=== PATIENT | male | born 1975 | race Caucasian/White ===

== ENCOUNTER 2025-03-08 18:59 | Emergency (ER) | payer OTHER, BC, SELFPAY ==
[2025-03-08 19:03] VITALS: BP 148/89; PULSE 85; TEMP 36.8; O2SAT 98; BMI 47.0
--- NOTE | 2025-03-08 19:20 | ED_ITS ---
HPI HPI - Back Pain/Injury General Chief Complaint: Back Pain/Injury Stated Complaint: BACK INJURY-WORK YESTERDAY Time Seen by Provider: 03/08/25 19:00 Source: patient Mode of arrival: walk-in Limitations: no limitations History of Present Illness HPI Narrative: Patient is a 49-year-old male who presents to the emergency department for evaluation of an injury that occurred to the low back at work yesterday. He states he was helping at work with equipment that swings oejq-zgo-psihs and he twisted his low back. He denies any falls or direct injury to the low back. He reports diffuse pain across the lower lumbar spine and paraspinal muscles. He reports some pain and tingling to the legs bilaterally. No urinary symptoms. He is able to ambulate slowly. He does not take any anticoagulation, only baby aspirin daily. Related Data Home Medications ?Medication ?Instructions ?Recorded ?Confirmed bupropion HCl 150 mg 24 hr tablet, mg PO 03/08/25 extended release fluoxetine 10 mg capsule mg 03/08/25 lisinopril 20 mg tablet mg 03/08/25 metoprolol succinate 100 mg mg PO 03/08/25 tablet,extended release 24 hr Previous Rx's ?Medication ?Instructions ?Recorded hydrocodone 5 mg-acetaminophen 325 1 tab PO Q6H PRN pain 3 days #12 03/08/25 mg tablet tabs methocarbamol 750 mg tablet 750 mg PO TID PRN pain #20 tabs 03/08/25 prednisone 20 mg tablet See Rx Instructions .Route 03/08/25 .COMPLEX #12 tabs Allergies Allergy/AdvReac Type Severity Reaction Status Date / Time ibuprofen (From Advil) Allergy unknown Verified 03/08/25 19:08 Opioid HPI Opioid Management Most Recent Opioid Data: Last ED Pain Assessment 03/08/25 20:15 Review of Systems ROS Constitutional Denies: fever or chills Ears, nose, mouth, and throat Denies: throat pain or nasal congestion Cardiovascular Denies: chest pain Respiratory Denies: shortness of breath or cough Gastrointestinal Denies: abdominal pain, nausea or vomiting Genitourinary Denies: painful urination or difficulty urinating Musculoskeletal Reports: back pain and extremity pain; Denies: neck pain Integumentary/Breast Denies: rash Neurological Reports: numbness in extremities; Denies: weakness in extremities Hematologic/Lymphatic Denies: easy bruising or easy bleeding PFSH PFSH Social History Little interest or pleasure in doing things: not at all Feeling down, depressed, or hopeless: not at all Exam Narrative Exam Narrative: Gen.: Awake, alert, in no distress Head: Normocephalic, atraumatic ENT: Moist mucous membranes Respiratory: No respiratory distress Back: Diffuse tenderness of the lumbar spine and paraspinal muscles of the low back. No bony point tenderness or obvious deformity. No step-off. Exam is slightly limited by body habitus. Extremities: Moves extremities equally, no injuries noted; normal dorsiflexion and plantarflexion of the lower extremities, no decrease in sensation to the medial thighs. Normal hip flexion bilaterally Psych: Normal mood and affect Neuro: No focal neuro deficit Skin: Warm, dry, intact Constitutional Vital Signs, click to edit/add: Last Vital Signs Temp 98.3 F 03/08/25 19:03 Pulse 85 03/08/25 19:03 Resp 24 H 03/08/25 19:03 BP 148/89 H 03/08/25 19:03 Pulse Ox 98 03/08/25 19:03 O2 Del Method Room Air 03/08/25 19:03 Course Vital Signs Vital signs: Vital Signs Temperature 98.3 F 03/08/25 19:03 Pulse Rate 85 03/08/25 19:03 Respiratory Rate 24 H 03/08/25 19:03 Blood Pressure 148/89 H 03/08/25 19:03 Pulse Oximetry 98 03/08/25 19:03 Oxygen Delivery Method Room Air 03/08/25 19:03 Temperature 98.3 F 03/08/25 19:03 Pulse Rate 85 03/08/25 19:03 Respiratory Rate 24 H 03/08/25 19:03 Blood Pressure 148/89 H 03/08/25 19:03 Pulse Oximetry 98 03/08/25 19:03 Oxygen Delivery Method Room Air 03/08/25 19:03 MDM - Back Pain/Injury MDM Narrative Medical decision making narrative: CT of the lumbar spine shows spondylosis with no acute changes. Patient medicated for pain. He is neurovascularly intact with no focal neuro deficits at discharge. Rest, ice, gentle stretching. Follow up with occupational health for reevaluation and work clearance. Return to the ED if symptoms change or worsen. SUPERVISED APC VISIT, PHYSICIAN ATTESTATION: Based on the medical record the care appears appropriate. ? Medical Records Attestation: I reviewed the patient's medical records. Imaging Data CT lumbar spine: Attestation: I have reviewed the pertinent imaging results. Discharge Plan Discharge Chief Complaint: Back Pain/Injury Clinical Impression: Low back pain, Lumbosacral strain, Acute lumbar radiculopathy Patient Disposition: Home, Self-Care Time of Disposition Decision: 20:49 Condition: Good Prescriptions / Home Meds: New hydrocodone-acetaminophen 5-325 mg tablet 1 tab PO Q6H PRN (Reason: pain) 3 Days Qty: 12 0RF Rx Instructions: DX: M54.5 prednisone 20 mg tablet See Rx Instructions .ROUTE .COMPLEX Qty: 12 0RF Rx Instructions: 3 tabs daily for 2 days, then 2 tabs daily for 2 days, then 1 tab daily for 2 days methocarbamol 750 mg tablet 750 mg PO TID PRN (Reason: pain) Qty: 20 0RF No Action lisinopril 20 mg tablet metoprolol succinate 100 mg tablet extended release 24 hr PO fluoxetine 10 mg capsule bupropion HCl 150 mg tablet extended release 24 hr PO Print Language: Luxembourger Instructions: Acute Low Back Pain (ED) Referrals: [facility] [Outside] - As soon as possible Discharge Date/Time: 03/08/25 21:05
[2025-03-08] MEDS: OXYCODONE HCL/ACETAMINOPHEN 5MG/325MG 1 TAB PO (19:26)
[2025-03-08] MEDS: ORPHENADRINE 60 MG/2 ML VIAL IM (19:26)
[2025-03-08] MEDS: METHYLPREDNISOLONE SOD SUCC PF 125 MG/2 ML VIAL IM (19:26)
== END 2025-03-08 21:05 | disposition home or self-care (01) ==
PROVIDERS: Emergency Provider Internal Medicine; PCP Nurse Practitioner
DX: S39.012A Strain of muscle, fascia and tendon of lower back, initial encounter (principal); X50.3XXA Overexertion from repetitive movements, initial encounter; M47.26 Other spondylosis with radiculopathy, lumbar region; M54.50 Low back pain, unspecified
CPT/HCPCS: 72131; 96372; 99285; J2360; J2919

== ENCOUNTER 2025-11-18 21:25 | Emergency (ER) | payer BC, SELFPAY ==
[2025-11-18 21:52] VITALS: BP 197/108; PULSE 108; TEMP 37.3; O2SAT 95; BMI 47.9
[2025-11-18 22:45] VITALS: O2SAT 95
--- NOTE | 2025-11-18 22:55 | ED_ITS ---
HPI - Extremity Problem General Chief complaint: Extremity Problem, Nontraumatic Stated complaint: LEGS SWOLLEN, HURTS TO WALK Time Seen by Provider: 11/18/25 22:27 Source: patient Mode of arrival: walk-in Limitations: no limitations History of Present Illness HPI Narrative: This 50-year-old male who is morbidly obese and has a history of hypertension and peripheral edema presents for evaluation of elevated blood pressure and lower extremity swelling. The patient states he has been off of his blood pressure medications for the past month because his doctor moved out of town. He denies any chest pain or shortness of breath. He has chronic lower extremity skin changes and plus pitting edema of the lower extremities. He denies any chest pain or shortness of breath. He denies that he smokes. He admits that he drinks alcohol. He has no nausea or vomiting or diarrhea. Related Data Home Medications ?Medication ?Instructions ?Recorded ?Confirmed bupropion HCl 150 mg 24 hr tablet, mg PO 03/08/25 extended release fluoxetine 10 mg capsule mg 03/08/25 lisinopril 20 mg tablet mg 03/08/25 metoprolol succinate 100 mg mg PO 03/08/25 tablet,extended release 24 hr Previous Rx's ?Medication ?Instructions ?Recorded hydrocodone 5 mg-acetaminophen 325 1 tab PO Q6H PRN pa in 3 days #12 03/08/25 mg tablet tabs methocarbamol 750 mg tablet 750 mg PO TID PRN pain #20 tabs 03/08/25 prednisone 20 mg tablet See Rx Instructions .Route 0 03/08/25 .COMPLEX #12 tabs Allergies Allergy/AdvReac Type Severity Reaction Status Date / Time ibuprofen (From Advil) Allergy unknown Verified 11/18/25 21:51 Review of Systems ROS Status of ROS 10 or more systems reviewed and unremark able except as noted in history and below PFSH PFSH Social History Little interest or pleasure in doing things: not at all Feeling down, depressed, or hopeless: not at all Exam Narrative Exam Narrative: Vital signs and Nursing Notes reviewed: Patient is afebrile, tachycardic with elevated blood pressure, he is not hypoxic with pulse ox of 95% on room air General: Awake, alert, oriented, obese adult male, somewhat tremulous otherwise no acute distress, lying comfortably on the stretcher HEENT: Normocephalic atraumatic, mucous membranes are moist and pink, eyes are clear, conjunctiva are injected Neck: Supple, no jvd Chest: Lungs are clear to auscultation with good air entry, there is no wheezing rhonchi or rales appreciated no accessory muscle use, patient is speaking in complete sentences-no chest wall tenderness to palpation CVS: Regular rate and rhythm S1-S2, no murmurs rubs or gallops, pulses are brisk and equal bilaterally ABD: Obese, soft, nondistended, nontender, no rebound guarding or rigidity, bowel sounds are normal Extremities: Moving all extremities, chronic lower extremity skin changes with hypertrophic changes in the posterior calves bilaterally, 2+ pitting edema, dorsalis pedis pulses are brisk and equal. Toenails are hypertrophic. Skin: Flushed, otherwise normal in appearance Neuro: No focal deficits Constitutional Vital Signs, click to edit/add: Last Vital Signs Temp 99.2 F 11/18/25 21:52 Pulse 108 H 11/18/25 21:52 Resp 19 11/18/25 21:52 BP 193/103 H 11/18/25 23:06 Pulse Ox 95 11/18/25 22:45 O2 Del Method Room Air 11/18/25 22:45 Course Vital Signs Vital signs: Vital Signs Temperature 99.2 F 11/18/25 21:52 Pulse Rate 108 H 11/18/25 21:52 Respiratory Rate 19 11/18/25 21:52 Blood Pressure 197/108 H 11/18/25 21:52 Pulse Oximetry 95 11/18/25 21:52 Oxygen Delivery Method Room Air 11/18/25 21:52 Temperature 99.2 F 11/18/25 21:52 Pulse Rate 108 H 11/18/25 21:52 Respiratory Rate 19 11/18/25 21:52 Blood Pressure 193/103 H 11/18/25 23:06 Pulse Oximetry 95 11/18/25 22:45 Oxygen Delivery Method Room Air 11/18/25 22:45 MDM - Extremity (Nontraumatic) MDM Narrative Medical decision making narrative: This 50-year-old male with a history of hypertension and lower extremity edema presents for evaluation of lower extremity swelling and pain. He has chronic lower extremity skin changes and 2+ pitting edema. He has been out of his lisinopril and metoprolol for at least 1 month. He states that his family physician moved away. He is not having any chest pain or shortness of breath. He is somewhat flushed and tremulous. He states he is tremulous because he is hungry. He refused an EKG and blood work. He allowed us to do a 1 view chest x-ray which does not show any acute findings. He was medicated emergency department with lisinopril 20 mg and metoprolol. He will be discharged home with prescription for lisinopril, metoprolol and Lasix to use. He will be referred to outpatient family medicine. Discharge Plan Discharge Chief Complaint: Extremity Problem, Nontraumatic Clinical Impression: Lower extremity edema, Hypertension, uncontrolled Patient Disposition: Home, Self-Care Time of Disposition Decision: 23:35 Condition: Fair Prescriptions / Home Meds: No Action lisinopril 20 mg tablet metoprolol succinate 100 mg tablet extended release 24 hr PO fluoxetine 10 mg capsule bupropion HCl 150 mg tablet extended release 24 hr PO hydrocodone-acetaminophen 5-325 mg tablet 1 tab PO Q6H PRN (Reason: pain) 3 Days Qty: 12 0RF Rx Instructions: DX: M54.5 prednisone 20 mg tablet See Rx Instructions .ROUTE .COMPLEX Qty: 12 0RF Rx Instructions: 3 tabs daily for 2 days, then 2 tabs daily for 2 days, then 1 tab daily for 2 days methocarbamol 750 mg tablet 750 mg PO TID PRN (Reason: pain) Qty: 20 0RF Print Language: Haitian Instructions: Chronic Hypertension (ED), Leg Edema (ED), Edema (ED) Referrals: JENNYFER MCNALLY [Primary Care Provider, Unknown] - 1 week
--- NOTE | 2025-11-18 22:57 | XR_ITS ---
[address] [address] Patient Name: DELANO SOUTH MRN: [id number] date: 1975 Sex: M Assigned Patient Location: ER Current Patient Location: Accession/Order Number: [id number] Exam Date: 11/18/2025 22:59 Report Date: 11/18/2025 23:44 At the request of: FRANKI NAVA MD Procedure: XR chest 1V XR chest 1V 11/18/2025 11:17 PM SIGNS AND SYMPTOMS: ^LE swelling PROTOCOL: Frontal radiograph of the chest COMPARISON: 04/09/2023 FINDINGS: The trachea is midline. The heart and mediastinal structures are within normal limits. The lung parenchyma is clear. The bony thorax is intact. XR/XR chest 1V IMPRESSION: No acute cardiopulmonary pathology. Impression dictated by: Braulio Keith M.D. 11/18/2025 11:44 PM Dictation Location: [place] [address] Electronically authenticated by: [id number] Y Date: 11/18/2025 23:44
[2025-11-18 23:06] VITALS: BP 193/103
[2025-11-18] MEDS: METOPROLOL TARTRATE 50 MG TABLET PO (23:06)
[2025-11-18] MEDS: LISINOPRIL 20 MG TABLET PO (23:06)
--- OUTSIDE RECORDS SUMMARY | 2025-11-18 23:27 | XMS_ITS | Clinical Summary ---
Author Organization [facility] Address [address] [place] [address] Care Team Providers Care Block Paver Name Role Phone Unavailable Primary Care Provider Unavailabl e Social History Tobacco UseTypesPacks/DayYears UsedDateSmoking Tobacco: Never AssessedUT Safety & EnvironmentAnswerDate RecordedFear of Current or Ex-PartnerNot on file 01/23/2024Emotionally AbusedNot on file01/23/2024hysically AbusedNot on file 01/23/2024Sexually AbusedNot on file4Physically or Sexually AbusedNot on file01/23/2024Sex and Gender InformationValueDate RecordedSex Assigned at BirthNot on fileLegal TqpNrxw5105/31/2022 12:14 AM EDTGender IdentityNot on file Sexual OrientationNot on file Plan of Treatment Health MaintenanceDue DateLast DoneCommentsCT Eiootcbxxqdg1973Colonoscopy 1973Colorectal Cancer Wzojmlamb1973FIT-DNA1973FIT1973 FOBT1975 7312Qhniymalczaif1973Depression Ixjmsffsk55/28/1985Hepatitis B Vaccines (1 of 3 - 19+ 3-dose series)1992Adult Azvesrn9204/28/1995Zoster Vaccines (1 of 2)2023Influenza Vaccine (#1)2025HIB VaccinesAged Out No longer eligible based on patient's age to complete this topicHPV VaccinesAged OutNo longer eligible based on patient's age to complete this topicIPV Vaccines Aged OutNo longer eligible based on patient's age to complete this topic Meningococcal B VaccineAged OutNo longer eligible based on patient's age to complete this topicMeningococcal VaccineAged OutNo longer eligible based on patient's age to complete this topicPneumococcal Vaccine: Pediatrics (0 to 5 Years) and At-Risk Patients (6 to 64 Years)Aged OutNo longer eligible based on patient's age to complete this topicRotavirus VaccinesAged OutNo longer eligible based on patient's age to complete this topic Insurance MemberSubscriberPlan / Payer (Effective 2022-Present)Name:Sukhjinder Ayala Relation to Subscriber:SelfName:Sukhjinder Ayala Payer ID:[id number] (NAIC) Type:Not on file Address: [address] [place] [id number]
--- OUTSIDE RECORDS SUMMARY | 2025-11-18 23:27 | XMS_ITS | Clinical Summary ---
Author Organization [facility] Address [id number] [address] [place] [address] Care Team Providers Care Computer Assembler Name Role Phone Xiomara Reed APRN-CHIP FRIER Primary Care Provid er Allergies Active AllergyReactionsCriticalityNoted DateCommentsNaproxen SodiumFlushing 12/25/2018 Medications MedicationSigDispense QuantityRefillsLast FilledStart DateEnd DateStatus ibuprofen (ADVIL,MOTRIN) 800 mg tablet Indications:Osteoarthritis of AC (acromioclavicular) joints, bilateralTAKE ONE TABLET BY MOUTH EVERY 8 HOURS NEEDED FOR PAIN 30 tablet 04/07/2018Active aspirin 81 mg Take 1 tablet (81 mg total) by mouth in the morning.Active hydroCHLOROthiazide (HYDRODIURIL) 12.5 mg tablet Indications:Localized swelling of both lower legsTake 1 tablet (12.5 mg total) by mouth daily as needed (leg swelling). 90 tablet ctive meclizine (ANTIVERT) 25 mg tablet TAKE 1-2 TABLETS BY MOUTH EVERY 8 HOURS NEEDED FOR TRKBKNI1303/30/2023ctive isosorbide mononitrate (IMDUR) 30 mg 24 hr tablet Indications:Essential hypertensionTake 1 tablet (30 mg total) by mouth daily. 90 tablet ctive pzhdfaogvdd-nvofkasnz-rjpvjazo (TRELEGY ELLIPTA) 100-62.5-25 mcg blister with device Indications:Centrilobular emphysema (CMS-HCC)Inhale 1 puff in the morning. 28 each ctive predniSONE (DELTASONE) 20 mg tablet Indications:Strain of lumbar paraspinous muscle, initial encounterTake 1 tablet (20 mg total) by mouth See Admin Instructions. 1 tab 2x daily x3 days, 1 tab daily x3days, 1/2 tablet daily x4 days 11 tablet 3Active albuterol (PROVENTIL HFA;VENTOLIN HFA) 90 mcg/actuation inhaler Indications:Pulmonary emphysema, unspecified emphysema typeTAKE 2 PUFFS BY MOUTH EVERY 6 HOURS NEEDED FOR WHEEZE OR FOR SHORTNESS OF BREATH 18 g 3Active FLUoxetine (PROzac) 10 mg capsule Indications:Anxiety and depressionTAKE 1 CAPSULE (10 MG TOTAL) BY MOUTH IN THE MORNING 90 capsule 5Active lisinopriL (PRINIVIL,ZESTRIL) 20 mg tablet Indications:Essential hypertensionTAKE 1 TABLET BY MOUTH IN THE MORNING EVERY DAY 90 tablet 5Active metoprolol succinate XL (TOPROL XL) 100 mg 24 hr tablet Indications:Essential hypertensionTAKE 1 TABLET BY MOUTH IN THE MORNING EVERY DAY 90 tablet 5Active buPROPion XL (WELLBUTRIN XL) 150 mg 24 hr tablet Indications:Anxiety and depressionTAKE 1 TABLET (150 MG TOTAL) BY MOUTH IN THE MORNING 90 tablet 5Active Active Problems ProblemNoted DateDiagnosed DateAnxiety and dnfqoywgbh21/22/2020Shoulder strain 04/16/2019Blood tests for routine general physical kkxidqmzeyk37/24/2019Class 3 severe obesity due to excess calories without serious comorbidity with body mass index (BMI) of 40.0 to 44.9 in adult10/26/2018Chronic pain of both shoulders 11/19/2017Pulmonary /19/2017Annual physical exam11/19/2017 Liwcusrtjwje43/03/2016Benign essential imizmkzabiug31/01/2016 Family History Medical HistoryRelationNameCommentsCancerFatherterminalRelationNameStatus CommentsFatherDeceasedMotherAlive Social History Tobacco UseTypesPacks/DayYears UsedDateSmoking Tobacco: FormerCigarettes0.224 12/03/1994 - 12/03/2018Smokeless Tobacco: CurrentChewAlcohol UseStandard Drinks/WeekCommentsYes7 (1 standard drink = 0.6 oz pure alcohol)Social Connection and Isolation PanelAnswerDate RecordedIn a typical week, how many times do you talk on the phone with family, friends, or neighbors?Three times a week12/11/2021How often do you get together with friends or relatives?More than three times a week12/11/2021How often do you attend mormon or yazdanism services?Never2Do you belong to any clubs or organizations such as mormon groups, unions, fraternal or athletic groups, or school groups?No 12/11/2021How often do you attend meetings of the clubs or organizations you belong to?Never12/11/2021re you , , , , never , or living with a partner?Kjuwxhe1712/11/2021UDIT-CAnswerDate Recorded Frequency of Alcohol ConsumptionNot on file12/11/2021verage Number of DrinksNot on file12/11/2021Q3: How often do you have six or more drinks on one occasion? Daily or almost daily12/11/2021HQ-2AnswerDate RecordedTotal Jigbl730 [facility] [place] [facility] - Occupational Stress Questionnaire AnswerDate RecordedDo you feel stress - tense, restless, nervous, or anxious, or unable to sleep at night because yourmind is troubled all the time - these days? Not at all12/11/2021Exercise Vital SignAnswerDate RecordedOn average, how many days per week do you engage in moderate to strenuous exercise (like a brisk [employer])?6 days12/11/2021n average, how many minutes do you engage in exercise at this level?10 min12/11/2021RAPARE - TransportationAnswerDate RecordedIn the past 12 months, has lack of transportation kept you from medical appointments or from getting medications?No12/11/2021In the past 12 months, has lack of transportation kept you from meetings, work, or from getting things needed for daily living?No12/11/2021hildcareAnswerDate LzqbbgegGgwqfjkhlBrqbuvm15/12/2019 EmploymentAnswerDate RecordedDo you need help finding a local career center and/or a training program?No12/11/2021Hunger ScreeningAnswerDate RecordedWithin the past 12 months we worried whether our food would run out before we got money to buy more.Never True04/16/2023Within the past 12 months the food we bought just didn't last and we didn't have money to get more.Never True04/16/2023 Purpose - LifeAnswerDate RecordedI have a purpose and direction in my life. Strongly Agree12/11/2021EducationAnswerDate RecordedWhat is the highest level of school you have completed or the highest degree you have received?12th grade 12/11/2021ex and Gender InformationValueDate RecordedSex Assigned at BirthNot on fileLegal MppQarn9607/07/2015 11:46 AM EDTGender ThxgzzcbJgjw97/10/2022 4:44 PM ESTSexual YjpdvfelnkjOxvscikx16/10/2022 4:44 PM EST Last Filed Vital Signs Vital SignReadingTime TakenCommentsBlood Ordqmrbu989/68004/16/2023 2:19 PM EDT Yqdsl423904/16/2023 2:19 PM UHJBvddrvqmfcv14.2 ??C (98.9 ??F)04/16/2023 2:19 PM EDTRespiratory Zzgh103504/16/2023 2:19 PM EDTOxygen Pngyfzzwma06%04/16/2023 2:19 PM EDTInhaled Oxygen Concentration--Ydszvk240.1 kg (311 lb)04/16/2023 2:19 PM YHHXeigov479.5 cm (5' 9.5 )04/16/2023 2:19 PM EDTBody Mass Index45.27004/16/2023 2:19 PM EDT Plan of Treatment Health MaintenanceDue DateLast DoneCommentsTobacco Cnxrthluz88/28/1985DTaP,Tdap and Td Vaccines (1 - Tdap)1992Zoster (Shingles) Vaccine (1 of 2)1992 Adult BMI Xzxblsimj48epression Nbpviodxj90 Influenza Skbxohm3908/02/2025 Medical Devices Not on file Insurance Care Teams Team MemberRelationshipSpecialtyStart DateEnd Date Xiomara Reed, SUPERVISOR FINE GRADING-CHIP FRIER PCP - GeneralFamily Jjqbpmef71/11/17
--- OUTSIDE RECORDS SUMMARY | 2025-11-18 23:27 | XMS_ITS | Clinical Summary ---
Author Organization [facility] Address [address] [place] [address] Care Team Providers Care Swing Saw Operator Name Role Phone Unavailable Primary Care Provider Unavailabl e Social History Tobacco UseTypesPacks/DayYears UsedDateSmoking Tobacco: Never AssessedSex and Gender InformationValueDate RecordedSex Assigned at BirthNot on fileLegal Sex Male02/13/2023 7:34 PM EDTGender IdentityNot on fileSexual OrientationNot on file Last Filed Vital Signs Vital SignReadingTime TakenCommentsBlood Pressure--Pulse--Temperature-- Respiratory Rate--Oxygen Saturation--Inhaled Oxygen Concentration--Davixx299 kg (260 lb)03/27/2019 12:00 PM UXMLxgtru038.2 cm (5' 7 )03/27/2019 12:00 PM EDTBody Mass Index40.72003/27/2019 12:00 PM EDT Plan of Treatment Not on file
== END 2025-11-18 23:44 | disposition home or self-care (01) ==
PROVIDERS: Emergency Provider Emergency Medicine; PCP Nurse Practitioner
DX: R60.0 Localized edema (principal); I10 Essential (primary) hypertension; E66.01 Morbid (severe) obesity due to excess calories; Z68.42 Body mass index [BMI] 45.0-49.9, adult
CPT/HCPCS: 71045; 80053; 99284